=== PATIENT | male | born 1940 | race Caucasian/White ===

== ENCOUNTER 2016-08-02 12:33 | Emergency (ER) | payer MEDICARE, BC ==
--- NOTE | 2016-08-03 16:11 | ER ---
ADMIT: 08/02/2016 RM/LOC: ER [facility] MR#: [id number] [address] [id number] DIANNA IBARRA [address] [address] [place] [address] Emergency Room Report SEX: M AGE: 75 : 1940 DATE: 08/02/2016 ADDENDUM: A 75-year-old white male coming in with a little bit of a headache. CT scan was essentially negative, just showed postop changes of his sinuses. He evidently [facility]. Evidently, he has had recurrent sinus infections, and they had actually got fungus or yeast out of there. This time, we are not going to put him on any antibiotics. He does have some hydrocodone at home. I explained on how they should take that either a half or one of those tablets, may go up to two if need be. I also explained that it has Tylenol in it, so if they are taking a half, he can have 2 regular strengths. If he takes a full, then he can have 1 regular strength of Tylenol. Obviously, if he needs both of them, he does not need any extra Tylenol. [facility], so that they can get in with their ENT doctor, who had done the procedure. CONDITION ON DISCHARGE: Fair. Davis Ivy MD/ [place] JOB #: [id number] CC: Davis Ivy MD, Attending Physician UNKNOWN, Family Physician
== END 2016-08-02 14:56 | disposition home or self-care (01) ==
LOC: ER 12:33
DX: G89.18 Other acute postprocedural pain (principal); R51 Headache; I10 Essential (primary) hypertension; F32.9 Major depressive disorder, single episode, unspecified; Z87.891 Personal history of nicotine dependence